=== PATIENT | female | born 1935 | race Caucasian/White ===

== ENCOUNTER 2017-02-11 18:02 | Observation (INO) | payer OTHER ==
[~2017-02-11] VITALS: Ht 165.1 cm; Wt 65.3 kg
[~2017-02-11 18:02] MED LIST: ATORVASTATIN CA40 MG PO; HYDROCHLOROTHIA1 TA2 PO
--- NOTE | 2017-02-11 18:02 | NUR ---
BIBA AFTER SYNCOPAL EPISODE WITH + HEAD STRIKE. PT STATES PRIOR TO SYNCOPE HAD UPSET STOMACH WITH DIARRHEA. FELT TIRED AND DIZZY AND PASSED OUT AFTER GOING TO BATHROOM. LUMP/BRUISE NOTED ON FOREHEAD. UPON ARRIVAL PT AWAKE, ALERT AND ORIENTED. IN NO OVERT DISTRESS. SKIN WARM AND DRY. HEART RATE 135 BUT SLOWED TO 105 WITH REST. DENIES CP OR SOB
--- NOTE | 2017-02-11 18:10 | NUR ---
ARRIVED TO ROOM 8. DR CLAYTON IN TO SEE PT.
--- NOTE | 2017-02-11 18:25 | NUR ---
EKG DONE, LABS DRAWN. HOSP IV STARTED
--- NOTE | 2017-02-11 18:27 | ED SYNCOPE COMPLAINT ---
History of Present Illness General Chief Complaint: Syncope and Near-Syncope Stated Complaint: SYNCOPE Source: patient, family, old records, EMS Exam Limitations: no limitations Vital Signs & Intake/Output Vital Signs & Intake/Output Vital Signs Date Time Temp Pulse Resp B/P B/P Pulse O2 O2 Flow FiO2 Mean Ox Delivery Rate 02/11 1858 Room Air 02/11 1815 96.8 133 18 127/56 95 Room Air Allergies Coded Allergies: Influenza Virus Vaccines (RASH 02/11/17) Penicillins (YEAST INFECTION 02/11/17) Sulfa (Sulfonamide Antibiotics) (HIVES 02/11/17) egg (RASH 02/11/17) moxifloxacin (UNKNOWN 02/11/17) phenazopyridine (From PYRIDIUM) ("IT SEEMED TO [place] ME OF EVERYTHING. I GOT SICK " 02/11/17) tomato (HIVES 02/11/17) Reconcile Medications Amlodipine Besylate 5 MG TABLET 1 TAB PO DAILY BP (Reported) Atorvastatin Calcium 40 MG TABLET 1 TAB PO DAILY CHOLESTEROL (Reported) Lisinopril/Hydrochlorothiazide (Lisinopril-Hctz 20-12.5 MG Tab) 20 MG-12.5 MG TABLET 1.5 TAB PO DAILY BP (Reported) Triage Nurses Notes Reviewed? yes HPI: Patient ate lunch and then went out shopping. When she got home she became and to feel nauseous and vomited once. Patient then lay down on the couch and then felt that she had to move her bowels. Patient went to the bathroom and was able to go. Patient then was walking back to the couch when the next thing she knew she was on the ground. Patient states that she hit her head on a clock on the way down. Patient denies any chest pain or palpitations. She denies any shortness of breath. She states that she still feels tired but no longer nauseous. Past History Travel History Traveled to [place] past 21 day No Medical History Any Pertinent Medical History? see below for history Cardiovascular: hypertension, hyperlipidemia Surgical History Surgical History: non-contributory Psychosocial History What is your primary language Macedonian Tobacco Use: Never used ETOH Use: denies use Illicit Drug Use: denies illicit drug use Family History Hx Contributory? No Review of Systems Review of Systems Constitutional: Reports: no symptoms. EENTM: Reports: no symptoms. Respiratory: Reports: no symptoms. Cardiovascular: Reports: no symptoms. GI: Reports: see HPI, diarrhea, nausea, vomiting. Genitourinary: Reports: no symptoms. Musculoskeletal: Reports: no symptoms. Skin: Reports: no symptoms. Neurological/Psychological: Reports: no symptoms. All Other Systems: Reviewed and Negative Physical Exam Physical Exam General Appearance: well developed/nourished, alert, awake Head: evidence of injury, HEMATOMA TO FOREHEAD Eyes: Bilateral: PERRL, EOMI. Ears, Nose, Throat: normal pharynx, normal ENT inspection, hearing grossly normal Neck: normal inspection, supple, full range of motion Respiratory: normal breath sounds, chest non-tender, no respiratory distress, lungs clear Cardiovascular: regular rate/rhythm, normal peripheral pulses Gastrointestinal: normal bowel sounds, soft, non-tender, no organomegaly Back: normal inspection, normal range of motion Extremities: normal inspection, normal capillary refill, normal range of motion, no edema Psychiatric: awake, alert, oriented x 3 Cranial Nerves: normal hearing, normal speech, PERRL Coordination/Gait: normal gait Motor/Sensory: no motor/sensory deficits Skin: intact, normal color, warm/dry Core Measures ACS in differential dx? Yes CVA/TIA Diagnosis: No Severe Sepsis Present: No Septic Shock Present: No Progress Differential Diagnosis: AMI, orthostatic syncope, pulmonary embolus, sick sinus syndrome, vasodepressor syncope Plan of Care: Orders Procedure Date/time Status Place in observation 02/[address] HEAD WO IV CONTRAST 02/11 184 Active Telemetry/Gospel Worker 02/11 182 Active URINALYSIS 02/11 182 Active TROPONIN LEVEL 02/11 182 Complete COMPREHENSIVE METABOLIC PANEL 02/11 182 Complete CBC WITHOUT DIFFERENTIAL 02/11 182 Complete EKG 02/11 180 Active Current Medications Sig/Rambo Start time Last Medication Dose Stop Time Status Admin Sodium Chloride 1,000 ML BOLUS ONE 02/11 1845 AC 02/11 (Normal Saline 0.9%) 02/11 194 192 Laboratory Tests 02/11/171828: Anion Gap 13, Estimated GFR 60, BUN/Creatinine Ratio 33.3 H, Glucose 135 H, Calcium 9.2, Total Bilirubin 0.6, AST 37 H, ALT 34, Alkaline Phosphatase 78, Troponin I < 0.01, Total Protein 7.2, Albumin 4.6, Globulin 2.6, Albumin/ Globulin Ratio 1.8, CBC w Diff NO MAN DIFF REQ, RBC 4.05 L, MCV 91.1, MCH 30.3, RDW 13.1, MPV 13.4 H, Gran % 91.5 H, Lymphocytes % 2.8 L, Monocytes % 5.3, Eosinophils % 0.3, Basophils % 0.1, Absolute Granulocytes 12.1 H, Absolute Lymphocytes 0.4 L, Absolute Monocytes 0.7 H, Absolute Eosinophils 0, Absolute Basophils 0, PUBS MCHC 33.3 Diagnostic Imaging: Viewed by Me: CT Scan. Discussed w/RAD: CT Scan. Initial ED EKG: S TACH AT 103, NSSTT CHANGES, NO CHANGE FROM PRIOR Prior EKG: unchanged Rhythm Strip: normal sinus rhythm Departure Departure Disposition: STILL A PATIENT Condition: Guarded Clinical Impression Primary Impression: Syncope Referrals: CHRIS ADAMS,MELISSA Leyva (PCP/Family) Departure Forms: Customer Survey General Discharge Information Observation Note Spoke With: KIRAN ADAMS,JONNA Physician Advisor Notified: FORREST ADAMS,ANDREW Cristina Place Patient In: Non-ED OBS Care Area Rationale for Observation: My rational for observation is as follows [TELE MONITORING, SERIAL ENZYMES, CARDIOLOGY CONSULTATION].
[2017-02-11 18:38] LABS: ABSOLUTE BASOPHIL COUNT 0 /CUMM (0.0-0.2); ABSOLUTE EOSINOPHIL COUNT 0 /CUMM (0.0-0.7); ABSOLUTE GRANULOCYTE CT 12.1 /CUMM (1.4-6.5); ABSOLUTE LYMPH COUNT 0.4 /CUMM (1.2-3.4); ABSOLUTE MONOCYTE COUNT 0.7 /CUMM (0.10-0.60); BASOPHIL % 0.1 % (0.0-2.0); EOSINOPHIL % 0.3 % (0-5); HEMATOCRIT 36.9 % (37-47); MEAN CORPUSCULAR HGB 30.3 PG (27.0-31.0); MEAN CORPUSCULAR HGB CONC 33.3 G/DL (33.0-37.0); MEAN CORPUSCULAR VOLUME 91.1 FL (81.0-99.0); MEAN PLATELET VOLUME 13.4 FL (7.4-10.4); PLATELET COUNT 89 /CUMM (130-400); RBC DISTRIBUTION WIDTH 13.1 % (11.5-14.5); RED BLOOD CELL CT 4.05 /CUMM (4.20-5.40); WHITE BLOOD CELL COUNT 13.2 /CUMM (4.8-10.8)
--- NOTE | 2017-02-11 18:56 | NUR ---
PT TO CT SCAN
[2017-02-11 19:02] LABS: GRANULOCYTE % 91.5 % (42.2-75.2)
--- NOTE | 2017-02-11 19:08 | RADIOLOGY REPORT ---
EXAMINATION: XR PORTABLE CHEST CLINICAL INFORMATION: Chest pain COMPARISON: 09/04/2010 chest x-ray TECHNIQUE: Portable frontal view of the chest was obtained. FINDINGS: The cardiomediastinal silhouette is unremarkable. Mildly hyperinflated emphysematous lungs noted. No focal pulmonary infiltrate. Mild bilateral apical pleural thickening. No pleural effusions or pneumothorax. Degenerative changes of the left shoulder joint. IMPRESSION: Emphysematous lungs. No focal pulmonary infiltrate.
[2017-02-11] MEDS ORDERED: AMLODIPINE BESYL5 M1 PO (19:09)
[2017-02-11] MEDS ORDERED: LISINOPRIL-HCT1 EACH PO (19:09)
[2017-02-11] MEDS ORDERED: ATORVASTATIN CA40 M1 PO (19:09)
--- NOTE | 2017-02-11 19:20 | NUR ---
RICARDO CARE DONE DUE TO PT BEING INCONTINENT OF STOOL
--- NOTE | 2017-02-11 19:39 | NUR ---
DR BECK IN TO SEE PT
--- NOTE | 2017-02-11 19:51 | CT SCAN REPORT ---
EXAMINATION: CT HEAD WITHOUT CONTRAST CLINICAL INFORMATION: Intracranial hemorrhage, head trauma COMPARISON: 09/04/2010 TECHNIQUE: Contiguous axial imaging was performed from the skull base to vertex without intravenous administration of contrast. DLP: 622.92 mGy-cm FINDINGS: There is no evidence of acute intracranial hemorrhage or territorial infarction. No abnormal mass effect or midline shift is seen. Borges to white matter differentiation is well preserved. No extra-axial fluid collections are identified. The ventricles are normal in size for patient's age. Bilateral high parietal bony defects, chronic findings. No acute skull fracture. The mastoid air cells and visualized portions of the paranasal sinuses are well aerated. IMPRESSION: No acute intracranial hemorrhage or acute skull fracture.
--- NOTE | 2017-02-11 19:53 | NUR ---
ORTHOSTATIC BLOOD PRESSURES DONE. PT DENIES URGE TO VOID
--- NOTE | 2017-02-11 20:21 | NUR ---
Emergency Dept UC Admit Note: To be admitted to [facility] by DR BECK with SYNCOPE as the diagnosis, to TELE/OBSERVATION location. Nursing Rug Washer and admitting notified 02/11/17 at 1942 PT WILL GO TO ROOM 178-1
--- NOTE | 2017-02-11 20:23 | History & Physical ---
TIM AYOUB MD 02/11/172022: General Information and HPI History of Present Illness: 81 year old female with PMH significant for HTN and HLD presents with syncopal episode this afternoon. Patient complains of difficulty sleeping and resulting fatigue and sluggishness for past two weeks and right sided hearing difficulty (loud/difficulty understanding). Today she was going about normal independent activities, after eating a frozen dinner and avocado, she felt nauseous and vomited three times ( large volume/watery) followed by three bowel movements (first formed then possibly diarrhea) in an hour time period. After the last BM she suddenly lost consciousness and fell walking out of the bathroom without any prodomal symptoms. Patient denies any fevers, chills, chest pain, trouble breathing, palpitations, abdominal pain, dysuria, or urgency. After falling, she knocked a clock off a stand that fell and hit her head resulting in some bruising and bleeding but denies any current headaches or other symptoms. Allergies/Medications Allergies: Coded Allergies: Influenza Virus Vaccines (RASH 02/11/17) Penicillins (YEAST INFECTION 02/11/17) Sulfa (Sulfonamide Antibiotics) (HIVES 02/11/17) egg (RASH 02/11/17) moxifloxacin (UNKNOWN 02/11/17) phenazopyridine (From PYRIDIUM) ("IT SEEMED TO [place] ME OF EVERYTHING. I GOT SICK " 02/11/17) tomato (HIVES 02/11/17) Home Med list Amlodipine Besylate 5 MG TABLET 1 TAB PO DAILY BP (Reported) Atorvastatin Calcium 40 MG TABLET 1 TAB PO DAILY CHOLESTEROL (Reported) Lisinopril/Hydrochlorothiazide (Lisinopril-Hctz 20-12.5 MG Tab) 20 MG-12.5 MG TABLET 1.5 TAB PO DAILY BP (Reported) Compliance With Home Meds: GOOD Past History Travel History Traveled to [place] past 21 day No Medical History Cardiovascular: hypertension, hyperlipidemia Surgical History Surgical History: non-contributory Past Family/Social History Psychosocial History Smoking Status: Former Smoker (quit 40 years ago) ETOH Use: denies use Illicit Drug Use: denies illicit drug use Functional Ability ADLs Independent: dressing, eating, toileting, bathing. Ambulation: independent IADLs Independent: shopping, housework, food prep, transportation. Review of Systems Review of Systems Constitutional: Reports: malaise. Denies: chills, fever, weakness, unexplained weight loss. EENTM: Denies: blurred vision, double vision, visual changes. Cardiovascular: Reports: syncope. Denies: chest pain, edema, orthopena, palpitations, peripheral edema. Respiratory: Reports: sputum production (occasional clear). Denies: hemoptysis, orthopnea, short of breath, stridor, wheezing. GI: Reports: diarrhea, nausea, vomiting. Denies: abdominal pain, bloating, constipation, bowel incontinence, melena, bloody stool. Genitourinary: Denies: dysuria, frequency, pain. Musculoskeletal: Denies: no symptoms. Skin: Denies: no symptoms. Neurological/Psychological: Denies: no symptoms. Exam & Diagnostic Data Last 24 Hrs of Vital Signs/I&O Vital Signs Date Time Temp Pulse Resp B/P B/P Pulse O2 O2 Flow FiO2 Mean Ox Delivery Rate 02/11 1955 97.3 107 18 132/52 99 Room Air 02/11 1858 Room Air 02/11 1815 96.8 133 18 127/56 95 Room Air Physical Exam General Appearance Alert, Oriented X3, Cooperative, No Acute Distress Skin No Rashes HEENT PERRLA, EOMI, Mucous Membr. moist/pink, right tympanic membrane perforation Neck Supple, No JVD, +2 Carotid Pulse wo Bruit Cardiovascular holosystolic murmur grade 3/6 (sinus tachycardia) Lungs Clear to Auscultation, Normal Air Movement Abdomen Normal Bowel Sounds, Soft, No Tenderness, No Masses Neurological Normal Speech, Strength at 5/5 X4 Ext, Normal Tone, Cranial Nerves 3-12 NL Extremities No Cyanosis, No Edema, Normal Pulses, No Tenderness/Swelling Vascular Normal Pulses, Pulses Symmetrical Last 24 Hrs of Labs/Antony: Laboratory Tests 02/11/179: Anion Gap 13, Estimated GFR 60, BUN/Creatinine Ratio 33.3 H, Glucose 135 H, Serum Osmolality 277 L, Calcium 9.2, Total Bilirubin 0.6, AST 37 H, ALT 34, Alkaline Phosphatase 78, Troponin I < 0.01, Total Protein 7.2, Albumin 4.6, Globulin 2.6, Albumin/Globulin Ratio 1.8, CBC w Diff NO MAN DIFF REQ, RBC 4.05 L, MCV 91.1, MCH 30.3, RDW 13.1, MPV 13.4 H, Gran % 91.5 H, Lymphocytes % 2.8 L, Monocytes % 5.3, Eosinophils % 0.3, Basophils % 0.1, Absolute Granulocytes 12.1 H, Absolute Lymphocytes 0.4 L, Absolute Monocytes 0.7 H, Absolute Eosinophils 0, Absolute Basophils 0, PUBS MCHC 33.3 Diagnostic Data EKG Results sinus tachycardia CXR Results emphysematous changes, no focal infiltrate Other Results negative CT head for hemorrhage Assessment/Plan Assessment: 81 year old female with PMH significant for HTN, HLD presents for observation secondary to syncopal episode. 1: Syncope: likely multifactorial with proximity to BM, vasovagal and hypovolemia. High BUN/Cr ration suggests hypovolemia. Negative Head CT Observe on telemetry for arrhythmia; question of arrhythmia in ED (Afib) unable to print EKG strip. Continue IV fluid hydration, orthostatics blood pressure and BUN/Cr ratio suggestive of hypovolemia. Serial troponins and EKGs to rule out ACS Cardiology consultation Echocardiogram in morning Hold antihypertensives for now (amlodipine and HCTZ/lisinopril) Continue statin 2: Hyponatremia: suspect hyponatremic hypovolemia Continue IV fluid hydration with NS @ 75cc/hr. Check serum and urine osmololity and urine electrolytes 3: Leukocytosis: Afebrile and without focal symptoms suggestive of infection, possible reactive leukocytosis. Negative CXR Follow up urinalysis for signs of infection, if positive will begin antibiotics and send for culture. Heart Healthy diet ALPS for DVT ppx Full Code As Ranked By This Provider Problem List: 1. Syncope 2. Hyponatremia Core Measures/Miscellaneous Acute Coronary Syndrome ACS Diagnosis: No Cerebrovascular Accident CVA/TIA Diagnosis: No Currently on Statin: Yes Congestive Heart Failure CHF Diagnosis: No VTE (View Protocol) VTE Risk Factors: Acute medical illness, Age > 40 No [facility] VTE prophylaxis d/t: No contraindications No VTE Pharm Prophylaxis d/t: Blood coag disorder (thrombocytopenia) VTE Diagnosis: No VTE Type: NONE Sepsis (View Protocol) Severe Sepsis Present: No Septic Shock Septic Shock Present: No Miscellaneous Documentation Attending Case Discussed With: KIRAN ADAMS,JONNA Primary Care Physician: KARSON PEREZ MD Level of Patient Care: Telemetry Consults Needed: Consulting Specialty: Cardiology MATILDA HAYES 02/11/17 2142: Core Measures/Miscellaneous VTE (View Protocol) VTE Confirmed by (Test): NONE Miscellaneous Documentation Patient sees these Specialists none Resident Review Statement Resident Statement: examined this patient, discussed with general intern, agreed with general intern Other Findings: Patient is 81-year-old female with past medical history significant for hypertension, dyslipidemia and severe hearing problems came with chief complaint of syncopal episode this afternoon. Patient admits that she was not feeling good lately and was very tired and not able to sleep properly for last couple of nights. She had severe hearing problems and out noises in her ears which she was seen by ENT specialist and working on hearing aids. She went for grocery this afternoon and was very tired while doing grocery and when came home she was nauseous and vomited mostly avocados that she ate earlier. She had 2-3 bowel movements not sure if diarrhea and when she was getting out of restroom all of a sudden she hadn't syncopal episode, fell on the floor and her for head/ hit by clock, episode was unwitnessed not sure for how long she passed out. She gained consciousness on her own and denied any palpitations, chest pain pre or post syncope. No seizure like activity or bowel/urinary incontinence observed. She denied fever, chills, headache, vision changes, any urinary or bowel complaints. In ER her vital signs were temperature 96.8, pulse 133 down to 105, respiratory rate 18, blood pressure 127/56 and she was saturating 95% on room air. Her orthostatics were positive her she dropped millimeters of mercury in her diastolic blood pressure from lying to standing position. Labs on admission were WBC count 13.2, hemoglobin 12.3, hematocrit 36.9, platelet count 89, sodium 144, potassium 4.1, chloride 91, BUNs 30, creatinine 0.9, and negative troponins. Head CT was negative for any intracranial pathology Chest x-ray was negative for any arterial pulmonary pathology EKG was tachycardic, normal sinus rhythm with no acute ST-T wave changes. On telemetry monitoring there were some ventricular tachycardia noted/tachycardia with multiple PVCs/ Physical examination Alert and oriented 3 Head showed Karson's on for head and slight for head superficial edema HEENT dry blood in nostrils, left tympanic membrane intact with straw minutes external ear canal, right ear tympanic membrane perforation Neck supple Chest clear to auscultate CVS S1 and S2 normal, grade 3 systolic murmur Abdomen soft with normal bowel sounds Extremities showed no edema Neurological examination showed no neurological deficit. Suspect and plan 80-year-old female with a history of hypertension, hearing problems and dyslipidemia came after syncopal episode most likely vasovagal syncope due to dehydration but we will rule out arrhythmias. We will observe patient on telemetry floor for 24 hours and will address following problems Problem #1 syncopal episode most likely due to vasovagal due to and dehydration but we will rule out arrhythmias and ACS 1. Telemetry monitoring 2. Patient had positive orthostatics most likely due to dehydration. She received bolus of normal saline and we will continue her on normal saline 75 mils per hour per for 1 L. 3. Cardiology consultation in a.m. 4. We will do echocardiogram in a.m. 5. We'll hold antihypertensives for now and we will stop most likely on of her the hypertensives on discharge and she can resume after seeing her PCP. Problem #2 hyponatremia most likely acute on chronic due to dehydration we will rule out SIADH 1. We will do serum osmolarity, urine osmolarity and lites 2. We'll hydrate her with normal saline Problem #3 leukocytosis most likely reactive but we will rule out UTI. Pneumonia was ruled out on chest x-ray 1. We will request UA Problem #4 history of dyslipidemia 1. We will continue her statins Problem #5 history of hypertension 1. Patient was found to be orthostatic positive we will hold her antihypertensives for now . Patient is full code Heart healthy diet Alps for DVT prophylaxis as she has thrombocytopenia KIRAN ADAMS, [facility] 02/12/17 0120: Attending MD Review Statement Attending Statement Attending MD Statement: examined this patient, discuss w/resident/PA/DIESEL SCOOP OPERATOR, agreed w/resident/PA/DIESEL SCOOP OPERATOR, discussed with family Attending Assessment/Plan: 81 yo F with h/o HTN, HLD, chronic thrombocytopenia of unclear etiology, is admitted for evaluation of syncopal episode. 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 Patient reports hearing constant loud noises, causing inability to catch up on her sleep , due to which she feels extremely fatigued and tired over the past week. This AM, patient recollects eating lunch consisting of frozen chicken with some broccoli and avocado (which she thinks was stale). She then went out shopping to [employer], and stated the hot weather added to her problems. When she returned home, around 3.45 pm, she felt nauseous, had one episode of nonbilious nonbloody vomiting and 3 episodes of ?diarrhea, after which she transiently passed out while walking out of the bathroom. She denies any prodromal symptoms. As soon as she fell, the wall clock fell and hit her forehead waking her up. She crawled to the phone and called her daughter who then called 911. She was alert, oriented post LOC, and clearly recalls the event. Patient denies any past cardiac issues, never seen a descriptive catalog librarian. Of note, on ER arrival, patient's electronic device monitor showed sinus tachy with a few episodes of irregular rhythm (no P waves), ?unclear if this was Afib ( although no previous history). We were unable to print out the rhythm strip. Vitals stable except for initial tachycardia. Examination significant for systolic murmur at the apex. Labs: WBC 13.2, Plt 89, Na 124 (previously 133-135, recently 125 in Sep 2016), BUN 30, bicarb 21, glucose 135, Osm 277, trop neg. CXR emphysema, no infiltrate. CT head neg. EKG: Sinus tachycardia. Orthostats: Lying 134/62 --> Sitting 142/65 --> Standing 132/52. 1. Syncope likely vasovagal 2/2 dehydration. Noted to drop diastolic BP by 10 points, making orthostatic hypotension possible etiology. Tele 23 Obs, need to rule out arrhythmias, serial ekg and troponin to rule out ACS, Echo, Cardio consult. Gentle hydration, recheck orthostats in AM. Hold anti-hypertensives ( lisinopril-HCTZ and amlodipine). Resume with amlodipine. 2. Hypovolemic hyponatremia in the setting of thiazide use. Workup, check urine lytes and osmolality. Recheck sodium after gentle hydration. 3. Leukocytosis likely reactive. DVT ppx Alps (thrombocytopenia). Full code. Observation Initial Note - I have personally examined IVETTE KUNZ on 02/12/17 at 1835. The disposition of ZEIVETTE ACOSTA is uncertain at this time and before a determination can be made, she requires a period of observation for the following reasons [needs telemetry observation for syncopal event, to rule out possibility of cardiac arrhythmia vs. [place].]
--- NOTE | 2017-02-11 21:41 | NUR ---
PT IN NO DISTRESS. SITTING UP EATING ICE CHIPS
[2017-02-11 22:32] VITALS: BP 110/52
[2017-02-12 07:00] VITALS: BP 10/50
[2017-02-12 07:42] LABS: ABSOLUTE BASOPHIL COUNT 0 /CUMM (0.0-0.2); ABSOLUTE EOSINOPHIL COUNT 0.1 /CUMM (0.0-0.7); ABSOLUTE GRANULOCYTE CT 5.1 /CUMM (1.4-6.5); ABSOLUTE LYMPH COUNT 0.4 /CUMM (1.2-3.4); ABSOLUTE MONOCYTE COUNT 0.4 /CUMM (0.10-0.60); BASOPHIL % 0.1 % (0.0-2.0); EOSINOPHIL % 1.3 % (0-5); GRANULOCYTE % 85.5 % (42.2-75.2); MEAN CORPUSCULAR HGB 30.7 PG (27.0-31.0); MEAN CORPUSCULAR HGB CONC 33.7 G/DL (33.0-37.0); MEAN CORPUSCULAR VOLUME 91.2 FL (81.0-99.0); MEAN PLATELET VOLUME 13.2 FL (7.4-10.4); PLATELET COUNT 75 /CUMM (130-400); RED BLOOD CELL CT 3.44 /CUMM (4.20-5.40)
[2017-02-12 08:07] LABS: HEMATOCRIT 31.4 % (37-47)
--- NOTE | 2017-02-12 09:26 | NUR ---
PHYSICAL THERAPY- CONSULT RECEIVED, CHART REVIEWED. PT IS S/P SYNCOPAL EPISODE AT HOME ?VAGAL EPISODE WHILE HAVING BOWEL MOVEMENT. S/W NSG WHO REPORTS PT ABLE TO MOBILIZE SAFELY IN ROOM W/O EXTERNAL ASSISTANCE. NO SKILLED ACUTE P.T. NEEDS IDENTIFIED, WILL NOT FOLLOW.
[2017-02-12 09:35] LABS: WHITE BLOOD CELL COUNT 5.9 /CUMM (4.8-10.8)
--- NOTE | 2017-02-12 10:38 | PN- Housestaff ---
NATALIIA ADAMS,SAULO 02/12/17 1022: Subjective Follow-up For: Syncope Hyponatremia Leukocytosis Complaints: reports facial pain due to bruises 2/2 fall Tele-Events Since Last Visit: sinus bradycardia, 59-87, no events Subjective: the patient was examined by me at bed side, she reports feeling much better with less dizzeness and no nausea or diarrhea Review of Systems Constitutional: Reports: no symptoms. EENTM: Reports: no symptoms. Cardiovascular: Reports: no symptoms. Respiratory: Reports: wheezing. Gastrointestinal: Reports: no symptoms. Genitourinary: Reports: no symptoms. Musculoskeletal: Reports: no symptoms. Neurological/Psychological: Reports: no symptoms. Hematologic/Endocrine: Reports: no symptoms. Immunologic/Allergic: Reports: no symptoms. Objective Last 24 Hrs of Vital Signs/I&O Vital Signs Date Time Temp Pulse Resp B/P B/P Pulse O2 O2 Flow FiO2 Mean Ox Delivery Rate 02/12 0800 Room Air 02/12 0700 98.1 72 20 10/50 95 Room Air 02/11 2232 97.9 85 18 110/52 97 Room Air 02/11 2140 97.2 89 18 142/64 97 Room Air 02/11 1955 97.3 107 18 132/52 99 Room Air 02/11 1858 Room Air 02/11 1815 96.8 133 18 127/56 95 Room Air Intake & Output 02/12 1600 / 0800 02/12 0000 Intake Total 700 1100 Output Total 400 Balance 300 1100 Intake, IV 600 1000 Intake, Oral 100 100 Output, Urine 400 Patient 144 lb Weight Physical Exam General Appearance: Alert, Oriented X3, Cooperative, No Acute Distress Skin: No Rashes Sepsis Skin Exam (color): Normal for Ethnicity HEENT: PERRLA, EOMI (RT tympanic membrane perforati) Neck: Supple, No JVD, +2 Carotid Pulse wo Bruit Cardiovascular: Regular Rate, Normal S1, Normal S2 Lungs: Clear to Auscultation, Normal Air Movement Abdomen: Normal Bowel Sounds, Soft, No Tenderness Neurological: Normal Speech, Strength at 5/5 X4 Ext, Normal Tone, Sensation Intact, Cranial Nerves 3-12 NL Extremities: No Clubbing, No Cyanosis, No Edema, No Tenderness/Swelling Vascular: Normal Pulses Current Medications: Current Medications Sig/Rambo Start time Last Medication Dose Route Stop Time Status Admin Acetaminophen 650 MG Q6P PRN 02/11 2030 AC PO Atorvastatin Calcium 40 MG DAILY@1700 02/12 1700 AC PO Atorvastatin Calcium 40 MG DAILY 02/12 1000 DC PO Ibuprofen 600 MG Q6P PRN 02/11 2030 DC PO Melatonin 5 MG AT BEDTIME 02/11 2200 AC 02/12 PO 0001 Oxycodone/ 2 TAB Q6P PRN 02/11 2030 AC Acetaminophen PO Sodium Chloride 1,000 ML Q13H 02/11 2145 AC 02/12 IV 02/12 1044 0007 Sodium Chloride 1,000 ML BOLUS ONE 02/11 1845 DC 02/11 IV 02/11 1944 1920 Last 24 Hrs of Lab/Antony Results Last 24 Hrs of Labs/Mics: Laboratory Tests 02/12/17 0730: Urine Color YEL, Urine Clarity HAZY H, Urine pH 6.5, Ur Specific [place] 1.010, Urine Protein NEG, Urine Ketones TRACE H, Urine Nitrite POS H, Urine Bilirubin NEG, Urine Urobilinogen 0.2, Ur Leukocyte Esterase LARGE H, Ur Microscopic SEDIMENT EXAMINED, Urine RBC 5-10 H, Urine WBC 25-50 H, Ur Epithelial Cells FEW, Urine Bacteria MANY H, Urine Hemoglobin TRACE-INTACT, Urine Glucose NEG 02/12/17 0730: Urine Osmolality 465, Ur Random Creatinine 49.2, Ur Random Sodium 65, Ur Random Potassium 51.5, Fraction Sodium Excret 0.6 02/12/17 0640: Troponin I Pending 02/12/17 0640: Anion Gap 8, Estimated GFR > 60, BUN/Creatinine Ratio 30.0 H, CBC w Diff NO MAN DIFF REQ, RBC 3.44 L, MCV 91.2, MCH 30.7, RDW 13.0, MPV 13.2 H, Gran % 85.5 H , Lymphocytes % 6.2 L, Monocytes % 6.9, Eosinophils % 1.3, Basophils % 0.1, Absolute Granulocytes 5.1, Absolute Lymphocytes 0.4 L, Absolute Monocytes 0.4, Absolute Eosinophils 0.1, Absolute Basophils 0, PUBS MCHC 33.7 02/12/17 0150: Troponin I 0.07 02/11/17 1829: Anion Gap 13, Estimated GFR 60, BUN/Creatinine Ratio 33.3 H, Glucose 135 H, Serum Osmolality 277 L, Calcium 9.2, Total Bilirubin 0.6, AST 37 H, ALT 34, Alkaline Phosphatase 78, Troponin I < 0.01, Total Protein 7.2, Albumin 4.6, Globulin 2.6, Albumin/Globulin Ratio 1.8, CBC w Diff NO MAN DIFF REQ, RBC 4.05 L, MCV 91.1, MCH 30.3, RDW 13.1, MPV 13.4 H, Gran % 91.5 H, Lymphocytes % 2.8 L, Monocytes % 5.3, Eosinophils % 0.3, Basophils % 0.1, Absolute Granulocytes 12.1 H, Absolute Lymphocytes 0.4 L, Absolute Monocytes 0.7 H, Absolute Eosinophils 0, Absolute Basophils 0, PUBS MCHC 33.3 02/11/171820: Urine Color Cancelled, Urine Clarity Cancelled, Urine pH Cancelled, Ur Specific [place] Cancelled, Urine Protein Cancelled, Urine Ketones Cancelled, Urine Nitrite Cancelled, Urine Bilirubin Cancelled, Urine Urobilinogen Cancelled, Ur Leukocyte Esterase Cancelled, Ur Microscopic Cancelled, Urine Hemoglobin Cancelled, Urine Glucose Cancelled 02/11/171820: Urine Osmolality Cancelled, Ur Random Creatinine Cancelled, Ur Random Sodium Cancelled, Ur Random Potassium Cancelled, Fraction Sodium Excret Cancelled Assessment/Plan Assessment: 81 year old female with PMH significant for HTN, HLD was admitted to telemetery for observation secondary to syncopal episode. 1: Syncope: * might be due to vasovagal, hypovolemia or electrolyte imbalnace High BUN/Cr ration suggests hypovolemia. Negative Head CT * will Observe on telemetry for arrhythmia; overnight the patient was on sinus bradycardia of 59-87 , no events will Continue IV fluid hydration, orthostatics blood pressure and BUN/Cr ratio suggestive of hypovolemia. * Serial troponins and EKGs to rule out ACS * Cardiology consultation * pending Echocardiogram * Hold antihypertensives for now (amlodipine and HCTZ/lisinopril)blood pressure this morning was 100/50 * Continue statin 2: Hyponatremia: * today's Na is 127 * suspect hyponatremic hypovolemia * Continue IV fluid hydration with NS @ 75cc/hr. * will continue to Check serum and urine osmololity and urine electrolytes Heart Healthy diet ALPS for DVT ppx Full Code Problem List: 1. Syncope 2. Hyponatremia Pain Ratin Tomorrow's Labs & Rationales: N/A DVT/Prophylaxis: mechanical Consulting Request: Consulting Specialty: Cardiology
--- NOTE | 2017-02-12 12:47 | PN-Observation ---
Assessment/Plan Assessment: Subjective Follow-up For: Syncope Hyponatremia Leukocytosis Complaints: reports facial pain due to bruises 2/2 fall Tele-Events Since Last Visit: sinus bradycardia, 59-87, no events Subjective: the patient was examined by me at bed side, she reports feeling much better with less dizzeness and no nausea or diarrhea Review of Systems Constitutional: Reports: no symptoms. EENTM: Reports: no symptoms. Cardiovascular: Reports: no symptoms. Respiratory: Reports: wheezing. Gastrointestinal: Reports: no symptoms. Genitourinary: Reports: no symptoms. Musculoskeletal: Reports: no symptoms. Neurological/Psychological: Reports: no symptoms. Hematologic/Endocrine: Reports: no symptoms. Immunologic/Allergic: Reports: no symptoms. Objective Last 24 Hrs of Vital Signs/I&O Vital Signs Date Time Temp Pulse Resp B/P B/P Pulse O2 O2 Flow FiO2 Mean Ox Delivery Rate 02/12 0800 Room Air 02/12 07 98.1 72 20 10/50 95 Room Air 02/11 2232 97.9 85 18 110/52 97 Room Air 02/11 2140 97.2 89 18 142/64 97 Room Air 02/11 1955 97.3 107 18 132/52 99 Room Air 02/11 1858 Room Air 02/11 1815 96.8 133 18 127/56 95 Room Air Intake & Output 02/12 1600 / 0800 02/12 0000 Intake Total 700 1100 Output Total 400 Balance 300 1100 Intake, IV 600 1000 Intake, Oral 100 100 Output, Urine 400 Patient 144 lb Weight Physical Exam General Appearance: Alert, Oriented X3, Cooperative, No Acute Distress Skin: No Rashes Sepsis Skin Exam (color): Normal for Ethnicity HEENT: JAMILAH, EOMI (RT tympanic membrane perforati) Neck: Supple, No JVD, +2 Carotid Pulse wo Bruit Cardiovascular: Regular Rate, Normal S1, Normal S2 Lungs: Clear to Auscultation, Normal Air Movement Abdomen: Normal Bowel Sounds, Soft, No Tenderness Neurological: Normal Speech, Strength at 5/5 X4 Ext, Normal Tone, Sensation Intact, Cranial Nerves 3-12 NL Extremities: No Clubbing, No Cyanosis, No Edema, No Tenderness/Swelling Vascular: Normal Pulses Current Medications: Current Medications Sig/Rambo Start time Last Medication Dose Route Stop Time Status Admin Acetaminophen 650 MG Q6P PRN 02/11 2030 AC PO Atorvastatin Calcium 40 MG DAILY@1700 07/02 1700 AC PO Atorvastatin Calcium 40 MG DAILY 02/12 1000 DC PO Ibuprofen 600 MG Q6P PRN 02/11 2030 DC PO Melatonin 5 MG AT BEDTIME 02/11 2200 AC 02/12 PO 0001 Oxycodone/ 2 TAB Q6P PRN 02/11 2030 AC Acetaminophen PO Sodium Chloride 1,000 ML Q13H 02/11 2145 AC 02/12 IV 02/12 1044 0007 Sodium Chloride 1,000 ML BOLUS ONE 02/11 184 DC 02/11 IV 02/11 1944 1920 Last 24 Hrs of Lab/Antony Results Last 24 Hrs of Labs/Mics: Laboratory Tests 02/12/17729: Urine Color YEL, Urine Clarity HAZY H, Urine pH 6.5, Ur Specific [place] 1.010, Urine Protein NEG, Urine Ketones TRACE H, Urine Nitrite POS H, Urine Bilirubin NEG, Urine Urobilinogen 0.2, Ur Leukocyte Esterase LARGE H, Ur Microscopic SEDIMENT EXAMINED, Urine RBC 5-10 H, Urine WBC 25-50 H, Ur Epithelial Cells FEW, Urine Bacteria MANY H, Urine Hemoglobin TRACE-INTACT, Urine Glucose NEG 02/12/17 0730: Urine Osmolality 465, Ur Random Creatinine 49.2, Ur Random Sodium 65, Ur Random Potassium 51.5, Fraction Sodium Excret 0.6 02/12/17 0640: Troponin I Pending 02/12/17 0640: Anion Gap 8, Estimated GFR > 60, BUN/Creatinine Ratio 30.0 H, CBC w Diff NO MAN DIFF REQ, RBC 3.44 L, MCV 91.2, MCH 30.7, RDW 13.0, MPV 13.2 H, Gran % 85.5 H , Lymphocytes % 6.2 L, Monocytes % 6.9, Eosinophils % 1.3, Basophils % 0.1, Absolute Granulocytes 5.1, Absolute Lymphocytes 0.4 L, Absolute Monocytes 0.4, Absolute Eosinophils 0.1, Absolute Basophils 0, PUBS MCHC 33.7 02/12/17 0150: Troponin I 0.07 02/11/17 1829: Anion Gap 13, Estimated GFR 60, BUN/Creatinine Ratio 33.3 H, Glucose 135 H, Serum Osmolality 277 L, Calcium 9.2, Total Bilirubin 0.6, AST 37 H, ALT 34, Alkaline Phosphatase 78, Troponin I < 0.01, Total Protein 7.2, Albumin 4.6, Globulin 2.6, Albumin/Globulin Ratio 1.8, CBC w Diff NO MAN DIFF REQ, RBC 4.05 L, MCV 91.1, MCH 30.3, RDW 13.1, MPV 13.4 H, Gran % 91.5 H, Lymphocytes % 2.8 L, Monocytes % 5.3, Eosinophils % 0.3, Basophils % 0.1, Absolute Granulocytes 12.1 H, Absolute Lymphocytes 0.4 L, Absolute Monocytes 0.7 H, Absolute Eosinophils 0, Absolute Basophils 0, PUBS MCHC 33.3 02/11/171820: Urine Color Cancelled, Urine Clarity Cancelled, Urine pH Cancelled, Ur Specific [place] Cancelled, Urine Protein Cancelled, Urine Ketones Cancelled, Urine Nitrite Cancelled, Urine Bilirubin Cancelled, Urine Urobilinogen Cancelled, Ur Leukocyte Esterase Cancelled, Ur Microscopic Cancelled, Urine Hemoglobin Cancelled, Urine Glucose Cancelled 02/11/171820: Urine Osmolality Cancelled, Ur Random Creatinine Cancelled, Ur Random Sodium Cancelled, Ur Random Potassium Cancelled, Fraction Sodium Excret Cancelled Assessment/Plan Assessment: 81 year old female with PMH significant for HTN, HLD was admitted to telemetery for observation secondary to syncopal episode. 1: Syncope: * might be due to vasovagal, hypovolemia or electrolyte imbalnace given her High BUN/Cr ratio * Negative Head CT * will Observe on telemetry for arrhythmia; overnight the patient was on sinus bradycardia of 59-87 , no events will Continue , orthostatics blood pressure and BUN/Cr and BEP monitor * Serial troponins and EKGs to rule out ACS * Hospital Cleaning Specialist believes her syncope is due to vasovagal attack related to a bout of nausea, vomiting and diarrhea 3. he thinks there isn't any cardiac component. She does have underlying mild aortic stenosis which he thinks is an incidental finding at this point. * Echocardiogram : show some proximal thickening of the interventricular septum noted, Mild aortic stenosis,mild systolic anterior motion of the mitral valve leaflet,Diffuse thickening of the aortic valve cusps with reduced excursion * Hold antihypertensives for now (amlodipine and HCTZ/lisinopril)blood pressure this morning was 100/50 * Continue statin 2: Hyponatremia: * today's Na is 127 was 124 yesterday * suspect hyponatremic hypovolemia due to thiazide that was exacerbated by recurrent emesis and diarrhea, in addition to low salt diet which the patient was following before she was admitted for months. * will hold off on her IV fluids and thiazides and follow sodium closely * will continue to Check serum and urine osmololity and urine electrolytes Heart Healthy diet ALPS for DVT ppx Full Code Problem List: 1. Syncope 2. Hyponatremia Pain Ratin Tomorrow's Labs & Rationales: N/A DVT/Prophylaxis: mechanical Consulting Request: Consulting Specialty: Cardiology NOTE ENTERED BY: SAULO WILLIAM MD DATE/TIME ENTERED:02/12/171021 REPORT NUMBER:[id number] CONFIDENTIAL, DO NOT COPY WITHOUT APPROPRIATE AUTHORIZATION. Problem List: 1. Syncope 2. Hyponatremia DVT/Prophylaxis: mechanical Consulting Request: Consulting Specialty: Cardiology Subjective Review of Systems Constitutional: Reports: no symptoms. Objective Last 24 Hrs of Vital Signs/I&O Vital Signs Date Time Temp Pulse Resp B/P B/P Pulse O2 O2 Flow FiO2 Mean Ox Delivery Rate 02/12 1600 Room Air 02/12 1507 98.0 71 18 112/48 98 Room Air 07 1500 98.0 71 18 112/48 98 Room Air 02/12 0800 Room Air 02/12 0700 98.1 72 20 10/50 95 Room Air 02/11 2232 97.9 85 18 110/52 97 Room Air / 2140 97.2 89 18 142/64 97 Room Air 02/11 1955 97.3 107 18 132/52 99 Room Air Intake & Output 02/12 1600 02 0800 02/12 0000 Intake Total 0384 415 2104 Output Total 900 400 Balance 355 180 2869 Intake, IV 715 411 6543 Intake, Oral 600 100 100 Output, Urine 900 400 Patient 144 lb Weight Physical Exam General Appearance: Alert, Oriented X3, Cooperative, No Acute Distress
--- NOTE | 2017-02-12 12:48 | PN- Att Addend ---
Attending Addendum Attending Brief Note 81-year-old female past medical history of hypertension hyperlipidemia and edema and chronic thrombocytopenia that goes back years of unclear etiology. She is here with a syncopal event presumably hypovolemic and dehydration as evidenced by some hyponatremia as well. Was not orthostatic by blood pressure but pulse went up from 98-107 from lying to standing. She is in observation status currently. She has a soft systolic murmur and I think it's worthwhile doing an echo just to make sure that there is no significant valvular heart disease and have cardiology see her. She came in with presumed atrial tachycardia I don't think this is A. fib but again I will have cardiology see her. A CT head is negative but she did sustain a bruise to her forehead. At this point I think the hyponatremia is multifactorial. 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 She was hydrated overnight and her sodium went from 124-127. At this point will not give her any more fluids, hold the thiazide and follow the sodium closely. We'll make sure physical therapy sees her and cardiology sees her. If cleared by physical therapy and cardiology and the sodium stays stable and she can likely be discharged home. I spoke to the case work aide and we are extending observation for another 24 hours hoping to tuck in all of these issues in the next 24 hours.
--- NOTE | 2017-02-12 13:43 | ECHOCARDIOGRAM REPORT ---
IVETTE KUNZ Age: 81 : 1935 Gender: F Exam Date: 02/12/2017 08:57 Exam Location: [address] Ht (in): 65 Wt (lb): 144 BSA: 1.74 BP: 110 / 52 Ordering Physician: JUAN FONTANA MD Referring Physician: Jose Almanza MD Chief, SoC Technologist: Ludmila Carlson [facility] Room Number: [id number] Indications: HYPERTENSION Rhythm: Sinus Technical Quality: Fair FINDINGS Left Ventricle Normal global left ventricular size, wall thickness, systolic function with no obvious regional wall motion abnormalities. There is some proximal thickening of the interventricular septum noted. Left ventricular ejection fraction is estimated at >65 %. Abnormal relaxation filling pattern of the left ventricle for age (stage 1 diastolic dysfunction). Right Ventricle The right ventricle is normal in size and function. Right Atrium The right atrium is normal in size. Left Atrium The left atrium is normal in size. The interatrial septum is intact. Mitral Valve Mild thickening/calcification of the mitral valve leaflets. There is mild systolic anterior motion of the mitral valve leaflets, possible mild left ventricular outflow tract obstruction noted. Aortic Valve Diffuse thickening of the aortic valve cusps with reduced excursion. Mild aortic stenosis. No aortic regurgitation. Tricuspid Valve The tricuspid valve is normal in structure and function. There is trace to mild tricuspid regurgitation. Pulmonary artery systolic pressure is normal. Pulmonic Valve Structurally normal pulmonic valve. There is no pulmonic regurgitation. Pericardium Normal pericardium without effusion. No pleural effusion. Great Vessels Normal aortic root dimension. The aortic arch and great vessels are well seen and are normal. CONCLUSIONS Normal global left ventricular size, wall thickness, systolic function with no obvious regional wall motion abnormalities. There is some proximal thickening of the interventricular septum noted. Abnormal relaxation filling pattern of the left ventricle for age (stage 1 diastolic dysfunction). The left atrium is normal in size. Mild thickening/calcification of the mitral valve leaflets. There is mild systolic anterior motion of the mitral valve leaflets, possible mild left ventricular outflow tract obstruction noted. Diffuse thickening of the aortic valve cusps with reduced excursion. Mild aortic stenosis. Pulmonary artery systolic pressure is normal. Jose Almanza M.D. (Electronically Signed) Final Date: 12 February 2017 13:43 MEASUREMENTS (Male / Female) Normal Values 2D ECHO LV Diastolic Diameter PLAX 3.5 cm 4.2 - 5.9 / 3.9 - 5.3 cm LV Systolic Diameter PLAX 2.3 cm 2.1 - 4.0 cm LV Fractional Shortening PLAX 34.3 % 25 - 46 % LV Ejection Fraction 2D Teich 64.4 % IVS Diastolic Thickness 0.9 cm LVPW Diastolic Thickness 1.0 cm LV Relative Wall Thickness 0.5 RV Internal Dim ED PLAX 2.8 cm 1.9 - 3.8 cm LVOT Diameter 2.0 cm Aortic Root Diameter 2.9 cm LA Systolic Diameter LX 3.7 cm 3.0 - 4.0 / 2.7 - 3.8 cm LA Volume 36.0 cm 18 - 58 / 22 - 52 cm Ascending Aorta Diameter 3.2 cm DOPPLER AV Peak Velocity 249.0 cm/s AV Peak Gradient 24.8 mmHg AV Mean Velocity 168.0 cm/s AV Mean Gradient 13.0 mmHg AV Velocity Time Integral 53.8 cm LVOT Peak Velocity 170.0 cm/s LVOT Peak Gradient 11.6 mmHg LVOT Mean Velocity 125.0 cm/s LVOT Mean Gradient 7.0 mmHg LVOT Velocity Time Integral 39.2 cm LVOT Stroke Volume 123.2 cm AV Area Cont Eq vti 2.3 cm AV Area Cont Eq pk 2.1 cm MV Peak Velocity 162.0 cm/s MV Peak Gradient 10.5 mmHg MV Mean Velocity 93.3 cm/s MV Mean Gradient 4.0 mmHg Mitral E Point Velocity 106.0 cm/s Mitral A Point Velocity 122.0 cm/s Mitral E to A Ratio 0.9 MV PHT Velocity 152.0 cm/s MV Deceleration [place] 682.0 cm/s MV Pressure Half Time 66.9 ms MV Area PHT 3.3 cm MV Deceleration Time 296.0 ms TR Peak Velocity 237.0 cm/s TR Peak Gradient 22.5 mmHg Right Atrial Pressure 5.0 mmHg Pulmonary Artery Systolic Pressu 27.5 mmHg Right Ventricular Systolic Press 27.5 mmHg PV Peak Velocity 134.0 cm/s PV Peak Gradient 7.2 mmHg PV Mean Velocity 96.2 cm/s PV Mean Gradient 4.0 mmHg PV Velocity Time Integral 28.0 cm LV E' Lateral Velocity 7.4 cm/s Mitral E to LV E' Lateral Ratio 14.4 LV E' Septal Velocity 7.4 cm/s Mitral E to LV E' Septal Ratio 14.4
[2017-02-12 15:00] VITALS: BP 112/48
--- NOTE | 2017-02-12 15:04 | Cons- Cardiology ---
General Information and HPI Consulting Request Date of Consult: 02/12/17 Requested By: Dede Baxter M.D. Reason for Consult: Syncope and heart murmur Source of Information: patient, old records Exam Limitations: no limitations History of Present Illness: Mrs. Kunz is an 81-year-old female with underlying dyslipidemia and hypertension under treatment. She has no history of heart disease. She was never told of a heart murmur. Yesterday she had a bout of vomiting and diarrhea and upon exiting the bathroom after a episode of diarrhea she suddenly passed out and fell and hit her head on a clock. She did not appear to be unconscious for very long, although it was unwitnessed. She called her daughter who came over and called 911 and she was brought to the emergency room. Evaluation so far has shown mild to moderate hyponatremia, which is slightly improved, normal EKGs, negative cardiac enzymes, negative head CT. Echocardiogram documents mild aortic stenosis and good left ventricular systolic function. The patient states she has not had previous syncopal episodes. Allergies/Medications Allergies: Coded Allergies: Influenza Virus Vaccines (RASH 02/11/17) Penicillins (YEAST INFECTION 02/11/17) Sulfa (Sulfonamide Antibiotics) (HIVES 02/11/17) egg (RASH 02/11/17) moxifloxacin (UNKNOWN 02/11/17) phenazopyridine (From PYRIDIUM) ("IT SEEMED TO [place] ME OF EVERYTHING. I GOT SICK " 02/11/17) tomato (HIVES 02/11/17) Home Med List: Amlodipine Besylate 5 MG TABLET 1 TAB PO DAILY BP (Reported) Atorvastatin Calcium 40 MG TABLET 1 TAB PO DAILY CHOLESTEROL (Reported) Current Medications: Current Medications Sig/Rambo Start time Last Medication Dose Route Stop Time Status Admin Acetaminophen 650 MG Q6P PRN 02/11 2030 AC PO Atorvastatin Calcium 40 MG DAILY@1700 02/12 1700 AC PO Atorvastatin Calcium 40 MG DAILY 02/12 1000 DC PO Ibuprofen 600 MG Q6P PRN 02/11 2030 DC PO Melatonin 5 MG AT BEDTIME 02/11 2200 AC 02/12 PO 0001 Oxycodone/ 2 TAB Q6P PRN 02/11 2030 AC Acetaminophen PO Sodium Chloride 1,000 ML Q13H 02/11 2145 DC 02/12 IV 02/12 1044 0007 Sodium Chloride 1,000 ML BOLUS ONE 02/11 1845 DC 02/11 IV 02/11 Review of Systems Review of Systems: In the review of systems she is complaining of vertigo, tinnitus and difficulty hearing with her right ear. She recently saw ENT who told her she needs hearing aids. 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 Ambulation: independent IADLs Independent: shopping, housework, food prep, transportation. Exam & Diagnostic Data Vital Signs and I&O Vital Signs Date Time Temp Pulse Resp B/P B/P Pulse O2 O2 Flow FiO2 Mean Ox Delivery Rate 02/13 800 Room Air 02/12 07 98.1 72 20 10/50 95 Room Air 02/11 2232 97.9 85 18 110/52 97 Room Air 02/11 2140 97.2 89 18 142/64 97 Room Air 02/11 1955 97.3 107 18 132/52 99 Room Air 02/11 1858 Room Air 02/11 1815 96.8 133 18 127/56 95 Room Air Intake & Output 02/12 1600 02/12 0802/12 0000 02/11 1600 02/11 0800 02/11 0000 Intake Total 700 1100 Output Total 400 Balance 300 1100 Intake, IV 600 1000 Intake, Oral 100 100 Output, Urine 400 Patient 144 lb Weight Physical Exam: On physical she is an elderly female in no acute distress HEENT exam reveals some bruising around her nose and eyes due to the recent trauma, otherwise negative Chest is clear Heart reveals a grade 2 to 3/6 systolic ejection murmur at the base radiating to the apex Abdomen is benign Extremities reveal good pulses and no edema Labs/Antony Results: Laboratory Tests 02/12 02/12 02/12 0730 0730 0640 Chemistry Troponin I Cancelled Urines Urine Color (YEL,AMB,STR) YEL Urine Clarity (CLEAR) HAZY H Urine pH (5.0 - 8.0) 6.5 Ur Specific [place] (1.001 - 1.035) 1.010 Urine Protein (NEG,<30 MG/DL) NEG Urine Ketones (NEG) TRACE H Urine Nitrite (NEG) POS H Urine Bilirubin (NEG) NEG Urine Urobilinogen (0.1 - 1.0 EU/dl) 0.2 Ur Leukocyte Esterase (NEG) LARGE H Ur Microscopic SEDIMENT EXAMINED Urine RBC (0 - 5 /HPF) 5-10 H Urine WBC (0 - 2 /HPF) 25-50 H Ur Epithelial Cells (NONE,FEW) FEW Urine Bacteria (NEG/NONE) MANY H Urine Hemoglobin (NEG) TRACE-INTACT Urine Osmolality (300 - 1000 MOSM/KG) 465 Ur Random Creatinine (mg/dL) 49.2 Ur Random Sodium (30 - 90 mmol/L) 65 Ur Random Potassium (mmol/L) 51.5 Fraction Sodium Excret (<1% %) 0.6 Urine Glucose (N MG/DL) NEG 02/12 02/12 0640 0150 Chemistry Sodium (137 - 145 mmol/L) 127 L Potassium (3.5 - 5.1 mmol/L) 3.8 Chloride (98 - 107 mmol/L) 95 L Carbon Dioxide (22 - 30 mmol/L) 24 Anion Gap (5 - 16) 8 BUN (7 - 17 mg/dL) 18 H Creatinine (0.5 - 1.0 mg/dL) 0.6 Estimated GFR (>60 ml/min) > 60 BUN/Creatinine Ratio (7 - 25 %) 30.0 H Troponin I (< 0.11 ng/ml) 0.06 0.07 Hematology CBC w Diff NO MAN DIFF REQ WBC (4.8 - 10.8 /CUMM) 5.9 RBC (4.20 - 5.40 /CUMM) 3.44 L Hgb (12.0 - 16.0 G/DL) 10.6 L Hct (37 - 47 %) 31.4 L MCV (81.0 - 99.0 FL) 91.2 MCH (27.0 - 31.0 PG) 30.7 RDW (11.5 - 14.5 %) 13.0 Plt Count (130 - 400 /CUMM) 75 L MPV (7.4 - 10.4 FL) 13.2 H Gran % (42.2 - 75.2 %) 85.5 H Lymphocytes % (20.5 - 51.1 %) 6.2 L Monocytes % (1.7 - 9.3 %) 6.9 Eosinophils % (0 - 5 %) 1.3 Basophils % (0.0 - 2.0 %) 0.1 Absolute Granulocytes (1.4 - 6.5 /CUMM) 5.1 Absolute Lymphocytes (1.2 - 3.4 /CUMM) 0.4 L Absolute Monocytes (0.10 - 0.60 /CUMM) 0.4 Absolute Eosinophils (0.0 - 0.7 /CUMM) 0.1 Absolute Basophils (0.0 - 0.2 /CUMM) 0 PUBS MCHC (33.0 - 37.0 G/DL) 33.7 02/11 02/11 02/11 1829 1821 1821 Chemistry Sodium (137 - 145 mmol/L) 124 L Potassium (3.5 - 5.1 mmol/L) 4.1 Chloride (98 - 107 mmol/L) 91 L Carbon Dioxide (22 - 30 mmol/L) 21 L Anion Gap (5 - 16) 13 BUN (7 - 17 mg/dL) 30 H Creatinine (0.5 - 1.0 mg/dL) 0.9 Estimated GFR (>60 ml/min) 60 BUN/Creatinine Ratio (7 - 25 %) 33.3 H Glucose (65 - 99 mg/dL) 135 H Serum Osmolality (285 - 295 MOSM/KG) 277 L Calcium (8.4 - 10.2 mg/dL) 9.2 Total Bilirubin (0.2 - 1.3 mg/dL) 0.6 AST (14 - 36 U/L) 37 H ALT (9 - 52 U/L) 34 Alkaline Phosphatase (<127 U/L) 78 Troponin I (< 0.11 ng/ml) < 0.01 Total Protein (6.3 - 8.2 g/dL) 7.2 Albumin (3.5 - 5.0 g/dL) 4.6 Globulin (1.9 - 4.2 gm/dL) 2.6 Albumin/Globulin Ratio (1.1 - 2.2 %) 1.8 Hematology CBC w Diff NO MAN DIFF REQ WBC (4.8 - 10.8 /CUMM) 13.2 H RBC (4.20 - 5.40 /CUMM) 4.05 L Hgb (12.0 - 16.0 G/DL) 12.3 Hct (37 - 47 %) 36.9 L MCV (81.0 - 99.0 FL) 91.1 MCH (27.0 - 31.0 PG) 30.3 RDW (11.5 - 14.5 %) 13.1 Plt Count (130 - 400 /CUMM) 89 L MPV (7.4 - 10.4 FL) 13.4 H Gran % (42.2 - 75.2 %) 91.5 H Lymphocytes % (20.5 - 51.1 %) 2.8 L Monocytes % (1.7 - 9.3 %) 5.3 Eosinophils % (0 - 5 %) 0.3 Basophils % (0.0 - 2.0 %) 0.1 Absolute Granulocytes (1.4 - 6.5 /CUMM) 12.1 H Absolute Lymphocytes (1.2 - 3.4 /CUMM) 0.4 L Absolute Monocytes (0.10 - 0.60 /CUMM) 0.7 H Absolute Eosinophils (0.0 - 0.7 /CUMM) 0 Absolute Basophils (0.0 - 0.2 /CUMM) 0 PUBS MCHC (33.0 - 37.0 G/DL) 33.3 Urines Urine Color Cancelled Urine Clarity Cancelled Urine pH Cancelled Ur Specific [place] Cancelled Urine Protein Cancelled Urine Ketones Cancelled Urine Nitrite Cancelled Urine Bilirubin Cancelled Urine Urobilinogen Cancelled Ur Leukocyte Esterase Cancelled Ur Microscopic Cancelled Urine Hemoglobin Cancelled Urine Osmolality Cancelled Ur Random Creatinine Cancelled Ur Random Sodium Cancelled Ur Random Potassium Cancelled Fraction Sodium Excret Cancelled Urine Glucose Cancelled Diagnostic Data EKG Results EKGs have shown sinus tachycardia and sinus rhythm with small inferior Q waves, probably normal variant. CXR Results PATIENT: IVETTE KUNZ PRESENT AGE: 81 PATIENT ACCOUNT NO: [id number] : 33 LOCATION: [facility] ORDERING PHYSICIAN: ANDREW CLAYTON MD SERVICE DATE: 02/11/17 EXAM TYPE: RAD - XRY-PORTABLE CHEST XRAY EXAMINATION: XR PORTABLE CHEST CLINICAL INFORMATION: Chest pain COMPARISON: 09/04/2010 chest x-ray TECHNIQUE: Portable frontal view of the chest was obtained. FINDINGS: The cardiomediastinal silhouette is unremarkable. Mildly hyperinflated emphysematous lungs noted. No focal pulmonary infiltrate. Mild bilateral apical pleural thickening. No pleural effusions or pneumothorax. Degenerative changes of the left shoulder joint. IMPRESSION: Emphysematous lungs. No focal pulmonary infiltrate. DICTATED BY: TAMMI VALDOVINOS MD DATE/TIME DICTATED:02/11/171901 PROGRAM MGR:MASOUD DATE/TIME TRANSCRIBED:02/11/171901 CONFIDENTIAL, DO NOT COPY WITHOUT APPROPRIATE AUTHORIZATION. <Electronically signed in Other Vendor System> SIGNED BY: TAMMI VALDOVINOS MD 02/11/171907 Other Results CONCLUSIONS Normal global left ventricular size, wall thickness, systolic function with no obvious regional wall motion abnormalities. There is some proximal thickening of the interventricular septum noted. Abnormal relaxation filling pattern of the left ventricle for age (stage 1 diastolic dysfunction). The left atrium is normal in size. Mild thickening/calcification of the mitral valve leaflets. There is mild systolic anterior motion of the mitral valve leaflets, possible mild left ventricular outflow tract obstruction noted. Diffuse thickening of the aortic valve cusps with reduced excursion. Mild aortic stenosis. Pulmonary artery systolic pressure is normal. Jose Almanza M.D. (Electronically Signed) Final Date: 12 February 2017 13:43 Assessment/Plan Assessment/Plan Mrs. Kunz is an 81-year-old female who had a sudden syncopal episodes. By description it sounds vasovagal related to a bout of nausea, vomiting and diarrhea 3. I don't think there is any cardiac component. She does have underlying mild aortic stenosis, which I think is an incidental finding at this point. She also has mild to moderate hyponatremia which may be contributory to the syncope and possibly is related to the thiazide diuretics that she takes. The patient has been ambulatory and has not had any arrhythmias. I think she is stable for discharge from a cardiac standpoint. I don't think she needs any further cardiac workup at this time. She should be followed regularly for her mild aortic stenosis which of course can progress over time. I recommend discontinuing her thiazide diuretic. If her blood pressure becomes elevated then other medications can be used that would not have an effect on electrolytes. Consult Acknowledgment - Thank you for your consult request. - Thank you for your consult request.
[2017-02-12 15:07] VITALS: BP 112/48
[2017-02-12 22:00] VITALS: BP 114/68
--- NOTE | 2017-02-13 06:48 | PN- Housestaff ---
NATALIIA ADAMS,SAULO 02/13/17 0648: Subjective Follow-up For: Syncope Hyponatremia Leukocytosis Complaints: no complaints Tele-Events Since Last Visit: NSR 60-70, PAC, no events Subjective: the patient was examined by me at bed side, she reports feeling much better, she was sitting comfortable in no acute distress Review of Systems Constitutional: Denies: no symptoms. EENTM: Denies: no symptoms. Cardiovascular: Denies: no symptoms. Respiratory: Denies: no symptoms. Gastrointestinal: Denies: no symptoms. Objective Last 24 Hrs of Vital Signs/I&O Vital Signs Date Time Temp Pulse Resp B/P B/P Pulse O2 O2 Flow FiO2 Mean Ox Delivery Rate 02/13 07 98.8 68 20 106/56 95 Room Air 02/12 2200 98.3 85 20 114/68 94 Room Air Intake & Output 02/13 1600 02/13 0800 02/13 0000 Intake Total 150 520 Output Total 300 500 Balance -150 20 Intake, IV 0 0 Intake, Oral 150 520 Number 0 0 Bowel Movements Output, Urine 300 500 Physical Exam General Appearance: Alert, Oriented X3, Cooperative, No Acute Distress Skin: No Rashes, No Breakdown, No Significant Lesion, healing facial bruises Skin Temp/Moisture Exam: Warm/Dry HEENT: PERRLA, EOMI, Mucous Membr. moist/pink Neck: Supple Cardiovascular: Regular Rate, Normal S1, Normal S2, ejection systolic at aortic area Lungs: Clear to Auscultation, Normal Air Movement Abdomen: Normal Bowel Sounds, Soft, No Tenderness Neurological: Normal Speech, Strength at 5/5 X4 Ext, Normal Tone Extremities: 1+ edeam on both LL Current Medications: Current Medications Sig/Rambo Start time Last Medication Dose Route Stop Time Status Admin Acetaminophen 650 MG Q6P PRN 02/11 2030 DCD PO Atorvastatin Calcium 40 MG DAILY@1700 02/12 1700 DCD 02/12 PO 1733 Melatonin 5 MG AT BEDTIME 02/110 DCD 02/12 PO 0001 Oxycodone/ 2 TAB Q6P PRN 02/11 2030 DCD Acetaminophen PO Last 24 Hrs of Lab/Antony Results Last 24 Hrs of Labs/Mics: Laboratory Tests 02/13/17 0615: Anion Gap 6, Estimated GFR > 60, BUN/Creatinine Ratio 20.0 Assessment/Plan Assessment: Assessment/Plan Assessment: 81 year old female with PMH significant for HTN, HLD was admitted to telemetery for observation secondary to syncopal episode. 1: Syncope: most likely due to vasovagal attack , patient is stable today , doesn't report any dizzeness or unsteadiness * might be due to hypovolemia or electrolyte imbalnace given her High BUN/Cr ratio * Negative Head CT * the patient is stable condition for discharge as per cardiology recommendation * she was advised to follow up with her PCP, Screen Tender and ENT doctor for hearing impairment * she was advised to take her medication on time * she was advised to stand up from lying posion gradually to avoid postural drop of blood pressure she was advised to folow hear healthy diet Problem List: 1. Hyponatremia 2. Syncope Pain Ratin Pain Location: N/A Pain Goal: Remain pain free Pain Plan: ACETAMINOPHEN/HYDROCODONE ACETAMINOPHEN Tomorrow's Labs & Rationales: NO LABS PATIENT IS BEING DISCHARGED DVT/Prophylaxis: early ambulation low risk Consulting Request: Consulting Specialty: Cardiology CIARA VILLA MD 02/13/17 1136: Attending MD Review Statement Attending Statement Attending MD Statement: examined this patient, discuss w/resident/PA/INTERIOR MECHANIC, agreed w/resident/PA/INTERIOR MECHANIC, reviewed EMR data (avail), discussed with case mgmt, amended to note Attending Assessment/Plan: The patient was seen and discussed with house staff. Agree with the assessment and plan of care. Will discontinue Lisinopril/HCTZ and discharge to home today. The patient is independent as per PT. Will have PCP (Dr. Gray) follow-up patient for BP check and Na level next week. 02/11/17 1829: Anion Gap 13, Estimated GFR 60, BUN/Creatinine Ratio 33.3 H, Glucose 135 H, Serum Osmolality 277 L, Calcium 9.2, Total Bilirubin 0.6, AST 37 H, ALT 34, Alkaline Phosphatase 78, Troponin I < 0.01, Total Protein 7.2, Albumin 4.6, Globulin 2.6, Albumin/Globulin Ratio 1.8, CBC w Diff NO MAN DIFF REQ, RBC 4.05 L, MCV 91.1, MCH 30.3, RDW 13.1, MPV 13.4 H, Gran % 91.5 H, Lymphocytes % 2.8 L, Monocytes % 5.3, Eosinophils % 0.3, Basophils % 0.1, Absolute Granulocytes 12.1 H, Absolute Lymphocytes 0.4 L, Absolute Monocytes 0.7 H, Absolute Eosinophils 0, Absolute Basophils 0, PUBS MCHC 33.3 02/11/171820: Urine Color Cancelled, Urine Clarity Cancelled, Urine pH Cancelled, Ur Specific [place] Cancelled, Urine Protein Cancelled, Urine Ketones Cancelled, Urine Nitrite Cancelled, Urine Bilirubin Cancelled, Urine Urobilinogen Cancelled, Ur Leukocyte Esterase Cancelled, Ur Microscopic Cancelled, Urine Hemoglobin Cancelled, Urine Glucose Cancelled 02/11/171820: Urine Osmolality Cancelled, Ur Random Creatinine Cancelled, Ur Random Sodium Cancelled, Ur Random Potassium Cancelled, Fraction Sodium Excret Cancelled Assessment/Plan Assessment: 81 year old female with PMH significant for HTN, HLD was admitted to telemetery for observation secondary to syncopal episode. 1: Syncope: * might be due to vasovagal, hypovolemia or electrolyte imbalnace given her High BUN/Cr ratio * Negative Head CT * will Observe on telemetry for arrhythmia; overnight the patient was on sinus bradycardia of 59-87 , no events will Continue , orthostatics blood pressure and BUN/Cr and BEP monitor * Serial troponins and EKGs to rule out ACS * Screen Tender believes her syncope is due to vasovagal attack related to a bout of nausea, vomiting and diarrhea 3. he thinks there isn't any cardiac component. She does have underlying mild aortic stenosis which he thinks is an incidental finding at this point. * Echocardiogram : show some proximal thickening of the interventricular septum noted, Mild aortic stenosis,mild systolic anterior motion of the mitral valve leaflet,Diffuse thickening of the aortic valve cusps with reduced excursion * Hold antihypertensives for now (amlodipine and HCTZ/lisinopril)blood pressure this morning was 100/50 * Continue statin 2: Hyponatremia: * today's Na is 127 was 124 yesterday * suspect hyponatremic hypovolemia due to thiazide that was exacerbated by recurrent emesis and diarrhea, in addition to low salt diet which the patient was following before she was admitted for months. * will hold off on her IV fluids and thiazides and follow sodium closely * will continue to Check serum and urine osmololity and urine electrolytes Heart Healthy diet ALPS for DVT ppx Full Code Problem List: 1. Syncope 2. Hyponatremia Pain Ratin Tomorrow's Labs & Rationales: N/A DVT/Prophylaxis: mechanical Consulting Request: Consulting Specialty: Cardiology NOTE ENTERED BY: SAULO WILLIAM MD DATE/TIME ENTERED:02/12/17 / 1022 REPORT NUMBER:[id number] CONFIDENTIAL, DO NOT COPY WITHOUT APPROPRIATE AUTHORIZATION. Consulting Request: Consulting Specialty: Cardiology CIARA VILLA MD 02/13/17 1136: Attending MD Review Statement Attending Statement Attending MD Statement: examined this patient, discuss w/resident/PA/INTERIOR MECHANIC, agreed w/resident/PA/INTERIOR MECHANIC, reviewed EMR data (avail), discussed with case mgmt, amended to note Attending Assessment/Plan: The patient was seen and discussed with house staff. Agree with the assessment and plan of care. Will discontinue Lisinopril/HCTZ and discharge to home today. The patient is independent as per PT. Will have PCP (Dr. Gray) follow-up patient for BP check and Na level next week.
[2017-02-13 07:20] VITALS: BP 106/56
--- NOTE | 2017-02-13 08:29 | Patient Discharge Instructions ---
Discharge Instructions General Discharge Information You were seen/treated for: SYNCOPE Special Instructions: 1. PLEASE F/U WITH YOUR PCP WITHIN 1 WEEK OF DISCHARGE. 2.PLEASE STOP TAKING LISINOPRIL/ HYDROCHLORTHIAZIDE DRUG/ STOPPED FOR HYPONATREMIA AND LOW BP. CONTINUE AMLODIPINE. 3. PLEASE F/U WITH YOUR ENT DOCTOR POST DISCHARGE FOR HEARING/ BALANCE ISSUES. Diet Continue normal diet: Yes Activity Full Activity/No Limits: Yes ( TOLERATED) Acute Coronary Syndrome Inclusion Criteria At DC or during hospital stay patient has or had the following: ACS DIAGNOSIS No Discharge Core Measures Meds if any: Prescribed or Continued at Discharge Meds if any: NOT Prescribed or Continued at Discharge Congestive Heart Failure Inclusion Criteria At DC or during hospital stay patient has or had the following: CHF DIAGNOSIS No Discharge Core Measures Meds if any: Prescribed or Continued at Discharge Meds if any: NOT Prescribed or Continued at Discharge Cerebrovascular accident Inclusion Criteria At DC or during hospital stay patient has or had the following: CVA/TIA Diagnosis No Discharge Core Measures Meds if any: Prescribed or Continued at Discharge Meds if any: NOT Prescribed or Continued at Discharge Venous thromboembolism Inclusion Criteria VTE Diagnosis No VTE Type NONE VTE Confirmed by (Test) NONE Discharge Core Measures - Per Current guidelines, there needs to be overlap - treatment for the first 5 days of Warfarin therapy. - If discharged on Warfarin prior to 5 days of - overlap therapy, the patient will need to be - assessed for post discharge needs including - *Post discharge parental anticoagulation - *Warfarin and/or parental anticoagulation education - *Follow up date to check INR post discharge At least 5 days overlap therapy as Inpatient No Meds if any: Prescribed or Continued at Discharge Note: Overlap Therapy is Warfarin and Anticoagulant Meds if any: NOT Prescribed or Continued at Discharge
--- NOTE | 2017-02-15 10:58 | Discharge Summary ---
Visit Information Visit Dates Admission Date: 02/11/17 Discharge Date: 02/13/17 Hospital Course Course Attending Physician: Dr. Roman Villa Primary Care Physician: CHRIS ADAMS,MELISSA Leyva Consulting Request: Consulting Specialty: Cardiology Hospital Course: 81 year old female with PMH significant for HTN, HLD was admitted to telemetery for observation for a syncopal episode. # syncope: Which was suspected to be either due to vasovagal attack, electrolyte imbalance or dehydration, her head CT was normal, her vitals and orthostatic blood pressure was normal and BUN & CR were normal, chronometer tester believes The syncope is due to vasovagal attack related to the nausea and vomiting and diarrhea 3, the patient has aortic stenosis about her left ventricular ejection fraction was more than 65%, which ruled out that aortic stenosis is cause of her syncope. #Hyponatremia patient's sodium was constantly low at 127 and it is likely to be due to hypovolemia due to repeated vomiting and diarrhea in addition to thiazide use, the patient mentioned that she is also on low-salt diet, and IV fluids and thiazide were stopped, and her gymsodium was followed closely Allergies: Coded Allergies: Influenza Virus Vaccines (RASH 02/11/17) Penicillins (YEAST INFECTION 02/11/17) Sulfa (Sulfonamide Antibiotics) (HIVES 02/11/17) egg (RASH 02/11/17) moxifloxacin (UNKNOWN 02/11/17) phenazopyridine (From PYRIDIUM) ("IT SEEMED TO [place] ME OF EVERYTHING. I GOT SICK " 02/11/17) tomato (HIVES 02/11/17) Disposition Summary Disposition Principal Diagnosis: syncope Additional Diagnosis: Hyponatremia Discharge Disposition: home or self care Discharge Instructions General Discharge Information Code Status: Full Code Patient's Diet: heart healthy diet Patient's Activity: as tolerated Follow-Up Instructions/Appts: 1. F/U WITH YOUR PCP WITHIN 1 WEEK OF DISCHARGE. 2.PLEASE STOP TAKING LISINOPRIL/ HYDROCHLORTHIAZIDE DRUG/ STOPPED FOR HYPONATREMIA AND LOW BP. CONTINUE AMLODIPINE. 3. PLEASE F/U WITH YOUR ENT DOCTOR POST DISCHARGE FOR HEARING/ BALANCE ISSUES. Medications at Discharge Discharge Medications: Stop taking the following medications: Lisinopril/Hydrochlorothiazide (Lisinopril-Hctz 20-12.5 MG Tab) 20 MG-12.5 MG TABLET ORAL DAILY Qty = 90 Continue taking these medications: Atorvastatin Calcium (Atorvastatin Calcium) 40 MG TABLET 1 Tablet ORAL DAILY Qty = 90 Comments: Last Taken:02/12/17 Time:1700 Amlodipine Besylate (Amlodipine Besylate) 5 MG TABLET 1 Tablet ORAL DAILY Qty = 90 Copies To: CHRIS ADAMS,MELISSA Leyva Attending MD Review Statement Documenting Attending: ROMAN VILLA MD Other Findings: The patient was seen and agree with the plan of care upon discharge. The patient 's Lisinopril/HCTZ was placed on hold as believe there was some degree of dehydration that contributed to symptoms. Note she has been chronically hyponatremic. Suggest checking urine lytes/osms and repeat serum values now that she is off diuretic. ? SIADH/polydipsia? OP evaluation with PCP.
== END 2017-02-13 11:57 ==
LOC: ERH 18:02 → 1NO 19:28 → ERHI 19:28 → ENRESERV 20:10 → ENTRNSPT 21:38 → 1NO 22:22 → CMPTRNSPT 22:33 → 1NO 02-12 08:29
PROVIDERS: Emergency Medicine; Internal Medicine; ADMIT Student in an Organized Health Care Education/Training Program
DX: R55 Syncope and collapse (principal); E87.1 Hypo-osmolality and hyponatremia; I10 Essential (primary) hypertension
CPT/HCPCS: 2000; 84133; 84300; 36415; 81001; 82436; 82570; 93005; 93010; 93306; 96360; G0378